=== PATIENT | female | born 1950 | race Caucasian/White ===

== ENCOUNTER 2020-12-23 09:23 | Day surgery (SDC) | payer MEDICARE ==
[2020-12-23] MEDS ORDERED: PROPOFOL 20 ML ONE (11:55)
[2020-12-23 11:57] VITALS: BP 104/72; PULSE 82; TEMP 98
== END 2020-12-23 13:10 | disposition home or self-care (01) ==
LOC: FASU-ENDO 09:23
PROVIDERS: ATTEND Internal Medicine Gastroenterology
PROC: 0DJD8ZZ Inspection of Lower Intestinal Tract, Via Natural or Artificial Opening Endoscopic (ICD-10-PCS; principal; 2020-12-23 11:28)
DX: Z12.11 Encounter for screening for malignant neoplasm of colon (principal); K64.0 First degree hemorrhoids; K57.30 Diverticulosis of large intestine without perforation or abscess without bleeding

== ENCOUNTER 2021-01-20 10:21 | Day surgery (SDC) | payer MEDICARE ==
[2021-01-20 12:43] VITALS: TEMP 97.9
[2021-01-20 15:18] VITALS: BP 114/65; PULSE 72
== END 2021-01-20 13:15 | disposition home or self-care (01) ==
LOC: FASU-ENDO 10:21
PROVIDERS: ATTEND Internal Medicine Gastroenterology
PROC: 0DB68ZX Excision of Stomach, Via Natural or Artificial Opening Endoscopic, Diagnostic (ICD-10-PCS; 2021-01-20)
PROC: 0DB48ZX Excision of Esophagogastric Junction, Via Natural or Artificial Opening Endoscopic, Diagnostic (ICD-10-PCS; 2021-01-20)
PROC: 0DB98ZX Excision of Duodenum, Via Natural or Artificial Opening Endoscopic, Diagnostic (ICD-10-PCS; principal; 2021-01-20 12:29)
DX: K29.50 Unspecified chronic gastritis without bleeding (principal); K21.00 Gastro-esophageal reflux disease with esophagitis, without bleeding; R10.13 Epigastric pain